=== PATIENT | female | born 1950 | race Caucasian/White ===

== ENCOUNTER → 2019-09-03 14:39 | Outpatient (CLI) | payer MEDICARE, OTHER, SELFPAY ==
[2019-09-04 07:41] LABS: SARS-COV-2 TOTAL ABS Nonreactive (Nonreactive)
== END ==
PROVIDERS: PCP Internal Medicine; Referring Provider Otolaryngology; Visit Provider Otolaryngology
DX: R05 Cough (principal)
CPT/HCPCS: 86769; G2023